=== PATIENT | female | born 1995 | race African-American/Black ===

== ENCOUNTER 2018-07-14 15:33 | Emergency (ER) | payer OTHER | END 2018-07-14 19:37 | disposition home or self-care (01) | LOC: JER 15:33 ==

== ENCOUNTER 2018-07-17 00:45 | Emergency (ER) | payer OTHER ==
[2018-07-17 01:05] VITALS: BP 120/74; PULSE 74; TEMP 97.6; BMI 41.5
[2018-07-17] MEDS ORDERED: ONDANSETRON 4 MG/2 ML VIAL IVPUSH ONE (01:26)
[2018-07-17] MEDS ORDERED: SODIUM CHLORIDE 1,000 ML IV STA (01:26)
[2018-07-17] MEDS ORDERED: ONDANSETRON 4 MG/2 ML VIAL ONE (01:29)
[2018-07-17 02:10] LABS: BASO % 0.9 % (0-2.0); EOS % 0.6 % (0-4.5); HEMATOCRIT 34.7 % (32.4-45.2); HEMOGLOBIN 11.7 GM/dL (10.7-15.3); LYMPH % 17.7 % (8-40); MCH 27.6 pg (25.7-33.7); MCHC 33.7 g/dl (32.0-36.0); MEAN CELL VOLUME 81.9 fl (80-96); MEAN PLT VOLUME 9.4 fl (7.5-11.1); MONO % 4.8 % (3.8-10.2); RBC 4.24 M/mm3 (3.60-5.2); RDW 15.1 % (11.6-15.6); WHITE BLOOD COUNT 11.7 K/mm3 (4.0-10.0)
--- NOTE | 2018-07-17 02:18 | PDOC ---
History of Present Illness - General Chief Complaint: Nausea/Vomiting Stated Complaint: VOMITNG/DIZZY Time Seen by Provider: 07/17/18 01:20 History Source: Patient Exam Limitations: No Limitations - History of Present Illness Initial Comments: 07/17/18 02:24 23 y/o F with no significant PMHx presents feeling dizziness and lightheadedness for the past 1 week, with nausea and NBNB emesis x several days. She was seen 07/14/18 in the ED for similar sx, primarily dizziness/vertigo , nausea; no meds rxd as sx were attributed to recent . Labs at that time were wnl, downtrending preg test and neg UA no prodromal URI sx/ear pain/sore throat or viral syndrome. Patient says these symptoms [facility] , with improved VB and no abdominal sx or pain/bowel movement changes. She notes her dizziness/lightheadedness worse with changing position and head movements., like "room spinning" sensation - no prior similar sx previously. She has been unable to tolerate fluid/food intake, vomiting all day, NBNB. no suspicious food intake or travel. no sick contacts. 07/17/18 02:27 07/17/18 02:54 07/17/18 02:56 Past History - Past Medical History Allergies/Adverse Reactions: Allergies Allergy/AdvReac Type Severity Reaction Status Date / Time No Known Allergies Allergy Verified 07/17/18 01:01 Home Medications: Ambulatory Orders Meclizine HCl [Antivert -] 25 mg PO TID PRN #15 tablet 07/17/18 Nitrofurantoin Monohyd/M-Cryst [Macrobid -] 100 mg PO BID #10 capsule 07/17/18 Ondansetron [Zofran Odt -] 4 mg SL TID PRN #9 od.tablet 07/17/18 Asthma: No Cancer: No Cardiac Disorders: No CVA: No COPD: No CHF: No DVT: No Dementia: No Diabetes: No GI Disorders: No Disorders: Yes (Hx of Chlamydia (Treated)) HTN: No Hypercholesterolemia: No Seizures: No Thyroid Disease: No - Surgical History Abdominal Surgery: No Appendectomy: No Cardiac Surgery: No Cholecystectomy: No Gastric Stapling: No GI Surgery: No Lung Surgery: No Neurologic Surgery: No Orthopedic Surgery: No - Immunization History Immunization Up to Date: Yes - Suicide/Smoking/Psychosocial Hx Smoking History: Never smoked Have you smoked in the past 12 months: No Number of Cigarettes Smoked Daily: 5 Information on smoking cessation initiated: No Hx Alcohol Use: No Drug/Substance Use Hx: No Substance Use Type: None Hx Substance Use Treatment: No Review of Systems - Review of Systems Able to Perform ROS?: Yes Comments:: 07/17/18 02:25 Review of systems Constitutional: no fevers or chills. HEENT: no headache No congestion. No visual/hearing disturbances. +dizziness/ lightheadedness. CVS: no cp or syncope. Resp: no sob. No cough. Gastrointestinal: no abdominal pain or diarrhea, +nausea +vomiting. Genitourinary: no urinary sx, hematuria. no vaginal bleeding. MUSCULOSKELETAL: No joint pain and swelling. No neck or back pain. SKIN: no redness or skin changes, no discharge, no rash. No wounds. Hematologic: no easy bruising/bleeding. Allergic/Immunologic: no allergies All other systems reviewed and negative, or as documented in HPI. *Physical Exam - Vital Signs Last Vital Signs Temp Pulse Resp BP Pulse Ox 97.6 F 74 18 120/74 98 07/17/18 01:01 07/17/18 01:01 07/17/18 01:01 07/17/18 01:01 07/17/18 01:01 - Physical Exam Comments: 07/17/18 02:25 Physical exam: General: awake and alert, NAD. nontoxic. +acutely nauseous HEENT: NCAT, PERRL, EOMI, no nystagmus, clear conjunctiva, anicteric, moist mucus membranes, clear oropharynx, no oral lesions.. Neck: neck supple, FROM Resp: CTAB, normal and even respirations, no respiratory distress CVS: RRR, no murmurs, 2+ peripheral pulses throughout, no peripheral edema Abdomen: soft, NTND, no peritoneal signs. Back: nontender, normal inspection and ROM MSK: no edema, MAO x4, ROM intact. No clubbing or cyanosis. normal bulk and tone. Neuro: alert, no focal neuro deficits. ambulatory, gait stable. no dysmetria. Skin: warm and well perfused, dry, cap refill <2 sec, normal color for ethnicity 07/17/18 02:55 ED Treatment Course - LABORATORY CBC & Chemistry Diagram: 07/17/18 01:26 07/17/18 01:26 - Medications Given in the ED: ED Medications Discontinued Medications Generic Name Dose Route Start Last Admin Trade Name Magdalena PRN Reason Stop Dose Admin Ondansetron HCl 4 mg 07/17/18 01:26 07/17/18 01:54 Zofran Injection IVPUSH 07/17/18 01:27 4 mg ONCE ONE Administration Medical Decision Making - Medical Decision Making 07/17/18 02:53 See HPI for details. Prior notes reviewed, including admissions, discharges and consultations. Vital signs reviewed, wnl. laboratory results and imaging reviewed, basic labs and lytes wnl, notable for normal LFTs/lipase beta hcg downtrending from 400s --> 200s compared to prior ED visit. UA +Leuk esterase and WBCs>10 ED course -interventions: IVF, zofran. reglan additionally, PO meclizine for vertigo sx. appears peripheral, no neuro deficits. clinically does not appear as central vertigo, more peripheral etiology and trial meds, as she was not previously sent home on regimen no gonzalez. no neuro deficits. - also UA with +WBCs>10, with clinical uti sx , n/v. treat with macrobid uncomplicated UTI, f/u cultures as possible etiology of sx. Pt to be discharged in stable condition. Patient and family made aware of clinical impression, treatment recommendations and disposition plan, return precautions discussed (including but not limited to new or persistent/worsening symptoms, pain, fevers, or signs of infection, chest pain, respiratory distress , inability to tolerate oral intake, dehydration, syncope, or neurologic changes ). Follow up with PMD and/or specialist as recommended, follow up information provided, take medications as instructed for duration of time. continue with supportive care, avoid triggers and precipitants. All questions answered to patient's satisfaction and expressed understanding and comfort with this. At the time of discharge, the patient is alert, clinically improved, tolerating po and verbalizes understanding of instructions, satisfied with the care received and felt comfortable with the plan. Patient does not suffer from an acute life- threatening medical condition at this time and is safe for outpatient follow- up. 07/17/18 02:55 07/17/18 04:18 07/17/18 05:40 *DC/Admit/Observation/Transfer Diagnosis at time of Disposition: Vertigo, Nausea & vomiting, UTI (urinary tract infection) - Discharge Dispostion Disposition: HOME Condition at time of disposition: Improved Decision to Admit order: No - Prescriptions Prescriptions: Meclizine HCl [Antivert -] 25 mg PO TID PRN #15 tablet PRN Reason: dizziness Nitrofurantoin Monohyd/M-Cryst [Macrobid -] 100 mg PO BID #10 capsule Ondansetron [Zofran Odt -] 4 mg SL TID PRN #9 od.tablet PRN Reason: nausea, vomiting - Referrals Referrals: Katherine Arguelles MD [Primary Care Provider] - Todd Westbrook MD [Staff Physician] - - Patient Instructions Printed Discharge Instructions: DI for Vertigo, DI for Vomiting -- Adult, DI for Urinary Tract Infection (UTI) Additional Instructions: 1) Please follow-up with your primary care doctor in the next 1-2 days. Please call tomorrow for for any urgent issues. Neurology followup provided for the vertigo in case it recurs or worsens 2) You were given a copy of the tests performed today. Please bring the results with you and review them with your primary care doctor. Your laboratory / were normal with downtrending beta hcg. 3) If you have any worsening of symptoms or any other concerns please return to the ED immediately. Return if worsening symptoms including fevers, headache, vomiting, visual or hearing disturbances, abdominal pain, chest pain, shortness of breath, syncope, dehydration, inability to take things by mouth/vomiting, altered mental status, or worsening concerning symptoms. 4) Please continue taking your home medications as directed. your medications on discharge include Zofran every 8 hours as needed for nausea/vomiting and meclizine three times a day as needed for dizziness/vertigo. side effects may include upset stomach, abdominal pain, vomiting, or diarrhea. do not drink alcohol with your medications. you may also have a urinary tract infection, take macrobid twice a day x 5 days for this, follow up on the urine culture Stay well hydrated and rest adequately. Make an appointment. If you cannot follow-up with your primary care doctor please return to the ED - Post Discharge Activity
[2018-07-17 02:50] LABS: ALBUMIN 3.9 g/dl (3.4-5.0); BILIRUBIN,TOTAL 0.5 mg/dL (0.2-1); BLOOD UREA NITROGEN 9.7 mg/dL (7-18); CREATININE 0.8 mg/dL (0.55-1.3); POTASSIUM 3.9 mmol/L (3.5-5.1); TOT PROT 7.9 g/dl (6.4-8.2)
[2018-07-17] MEDS ORDERED: MECLIZINE HCL 25 MG TABLET (FP) PO ONE (02:51)
[2018-07-17] MEDS ORDERED: METOCLOPRAMIDE HCL INJECTION 10 MG/2 ML VIAL IVPUSH ONE (02:51)
[2018-07-17] MEDS ORDERED: METOCLOPRAMIDE HCL INJECTION 10 MG/2 ML VIAL ONE (02:51)
[2018-07-17 03:17] LABS: PLATELET COUNT 248 K/MM3 (134-434); PLATELET ESTIMATE ADEQUATE
[2018-07-17] MEDS ORDERED: MECLIZINE HCL 25 MG TABLET (FP) ONE (03:59)
[2018-07-17 05:11] LABS: HCG,QUALITATIVE URINE Positive
[2018-07-17 05:13] LABS: EPI CELLS 12.4 /HPF (0-5/HPF); HYALINE CASTS 15 /lpf (0-8); PH,URINE 6.5 (5.0-8.0); URINE APPEARANCE CLEAR; URINE BACTERIA 364.8 /hpf (NEGATIVE); URINE BILIRUBIN NEGATIVE (NEGATIVE); URINE COLOR YELLOW; URINE GLUCOSE (UA) NEGATIVE (NEGATIVE); URINE KETONE TRACE (NEGATIVE); URINE LEUK ESTERASE 1+ (NEGATIVE); URINE NITRITE NEGATIVE (NEGATIVE); URINE PROTEIN NEGATIVE (NEGATIVE); URINE RBC 7 /hpf (0-4); URINE WBC 14 /hpf (0-5)
== END 2018-07-17 05:46 | disposition home or self-care (01) ==
LOC: JER 00:45
PROC: 3E033GC Introduction of Other Therapeutic Substance into Peripheral Vein, Percutaneous Approach (ICD-10-PCS; principal; 2018-07-17)
PROC: 3E033GC Introduction of Other Therapeutic Substance into Peripheral Vein, Percutaneous Approach (ICD-10-PCS; 2018-07-17)
DX: N39.0 Urinary tract infection, site not specified (principal)
CPT/HCPCS: 36415; 80053; 81003; 83690; 84702; 84703; 85025; 87086; 96374; 96375; 99283-25; J7030

== ENCOUNTER 2018-07-19 14:19 | Emergency (ER) | payer OTHER ==
[2018-07-19 14:44] VITALS: BMI 41.5
[2018-07-19] MEDS ORDERED: METOCLOPRAMIDE HCL INJECTION 10 MG/2 ML VIAL IVPUSH ONE (17:21)
[2018-07-19] MEDS ORDERED: SODIUM CHLORIDE 1,000 ML IV STA (17:32)
[2018-07-19] MEDS ORDERED: FAMOTIDINE 20 MG/50 ML IVPB 20 MG/50 ML MG IVPB ONE ×2 (17:32→18:04)
--- NOTE | 2018-07-19 17:40 | PDOC ---
History of Present Illness - General Chief Complaint: Nausea/Vomiting Stated Complaint: VOMITTING Time Seen by Provider: 07/19/18 17:13 History Source: Patient Exam Limitations: Clinical Condition - History of Present Illness Initial Comments: 07/19/18 19:07 Patient with no significant past medical history present with complaint of persistent vomiting, dizziness and weakness status post medical over week ago. Patient was seen 5 days ago for symptoms and discharged home on Zofran for nausea and vomiting but patient came back 2 days after for persistent symptoms or discharge home on meclizine for vertigo. Patient reported dizziness improved with meclizine but comes back again after a few hours. Patient did not take Zofran for the vomiting. Patient reported unable to keep any food down. Denies diarrhea. Constipation. Denies vaginal bleeding now Timing/Duration: 1 week Past History - Past Medical History Allergies/Adverse Reactions: Allergies Allergy/AdvReac Type Severity Reaction Status Date / Time No Known Allergies Allergy Verified 07/17/18 01:01 Home Medications: Ambulatory Orders Meclizine HCl [Antivert -] 25 mg PO TID PRN #15 tablet 07/17/18 Nitrofurantoin Monohyd/M-Cryst [Macrobid -] 100 mg PO BID #10 capsule 07/17/18 Ondansetron [Zofran Odt -] 4 mg SL TID PRN #9 od.tablet 07/17/18 Asthma: No Cancer: No Cardiac Disorders: No CVA: No COPD: No CHF: No DVT: No Dementia: No Diabetes: No GI Disorders: No Disorders: Yes (Hx of Chlamydia (Treated)) HTN: No Hypercholesterolemia: No Seizures: No Thyroid Disease: No - Surgical History Abdominal Surgery: No Appendectomy: No Cardiac Surgery: No Cholecystectomy: No Gastric Stapling: No GI Surgery: No Lung Surgery: No Neurologic Surgery: No Orthopedic Surgery: No - Immunization History Immunization Up to Date: Yes - Suicide/Smoking/Psychosocial Hx Smoking History: Never smoked Have you smoked in the past 12 months: No Number of Cigarettes Smoked Daily: 5 Information on smoking cessation initiated: No Hx Alcohol Use: No Drug/Substance Use Hx: No Substance Use Type: None Hx Substance Use Treatment: No Review of Systems - Review of Systems Able to Perform ROS?: Yes Is the patient limited Tajik proficient: No Constitutional: Yes: Weakness. No: Chills, Fever HEENTM: No: Eye Pain, Blurred Vision, Tearing, Recent change in vision Respiratory: No: Symptoms reported, See HPI, Cough, Orthopnea, Shortness of Breath, SOB with Exertion, SOB at Rest, Stridor, Wheezing, Productive cough, Hemoptysis, Other Cardiac (ROS): No: Symptoms Reported, See HPI, Chest Pain, Edema, Irregular Heart Rate, Lightheadedness, Palpitations, Syncope, Chest Tightness, Other ABD/GI: Yes: Symptoms Reported, See HPI, Nausea, Vomiting. No: Constipated, Diarrhea : Yes: Frequency. No: Burning, Urgency Neurological: Yes: Symptoms reported, See HPI, Weakness, Dizziness All Other Systems: Reviewed and Negative *Physical Exam - Vital Signs Last Vital Signs Temp Pulse Resp BP Pulse Ox 98.1 F 63 16 115/65 100 07/19/18 14:42 07/19/18 14:42 07/19/18 14:42 07/19/18 14:42 07/19/18 14:42 - Physical Exam General Appearance: Yes: Nourished, Appropriately Dressed, Mild Distress HEENT: positive: Normal ENT Inspection Neck: positive: Supple Respiratory/Chest: positive: Lungs Clear, Normal Breath Sounds. negative: Respiratory Distress, Accessory Muscle Use Cardiovascular: positive: Regular Rhythm, Regular Rate Female Pelvic Exam: positive: normal external exam Gastrointestinal/Abdominal: positive: Normal Bowel Sounds, Soft. negative: Tender, Organomegaly Musculoskeletal: positive: Normal Inspection Extremity: positive: Normal Inspection Integumentary: positive: Normal Color Neurologic: positive: Fully Oriented, Alert, Normal Response ED Treatment Course - LABORATORY CBC & Chemistry Diagram: 07/19/18 17:54 07/19/18 17:54 - RADIOLOGY Radiology Studies Ordered: Category Date Time Status TRANSVAGINAL US PREG [US] Stat Ultrasound 07/19/18 17:33 Ordered Medical Decision Making - Medical Decision Making 07/19/18 18:09 Patient with no significant past medical history present with complaint of persistent vomiting, dizziness and weakness status post medical over week ago. Patient was seen 5 days ago for symptoms and discharged home on Zofran for nausea and vomiting but patient came back 2 days after for persistent symptoms or discharge home on meclizine for vertigo. Patient reported dizziness improved with meclizine but comes back again after a few hours. Patient did not take Zofran for the vomiting. Patient reported unable to keep any food down. Denies diarrhea. Constipation. Denies vaginal bleeding now Exam unremarkable with normal abdominal exam. Beta hCG trending down from previous visits after medical @6wks [place].Symptoms likely vertigo versus nausea vomiting from termination. CBC, CMP beta hCG lab ordered. IV hydration with normal saline 1 L ordered. Pepcid 20 mg IV and Reglan 10 mg IV ordered for nausea vomiting and vertigo.Transvaginal ultrasound ordered to evaluate for retained POC. Reevaluate after lab and imaging results 07/19/18 19:12 CBC and chemistry lab are unremarkable. Patient pending ultrasound. Patient sign out to evening team for follow-up care. *DC/Admit/Observation/Transfer Diagnosis at time of Disposition: Lightheadedness, Vertigo Nausea & vomiting Qualifiers: Vomiting type: unspecified Vomiting Intractability: non-intractable Qualified Code(s): R11.2 - Nausea with vomiting, unspecified - Discharge Dispostion Condition at time of disposition: Stable - Referrals - Patient Instructions - Post Discharge Activity
[2018-07-19] MEDS ORDERED: METOCLOPRAMIDE HCL INJECTION 10 MG/2 ML VIAL ONE (18:04)
[2018-07-19 18:06] LABS: BASO % 0.6 % (0-2.0); EOS % 0.2 % (0-4.5); HEMATOCRIT 34.9 % (32.4-45.2); HEMOGLOBIN 11.8 GM/dL (10.7-15.3); LYMPH % 15.7 % (8-40); MCH 27.7 pg (25.7-33.7); MCHC 33.9 g/dl (32.0-36.0); MEAN CELL VOLUME 81.6 fl (80-96); MEAN PLT VOLUME 8.9 fl (7.5-11.1); MONO % 5.2 % (3.8-10.2); NEUT % 78.3 % (42.8-82.8); PLATELET COUNT 227 K/MM3 (134-434); RBC 4.28 M/mm3 (3.60-5.2); RDW 14.9 % (11.6-15.6); WHITE BLOOD COUNT 7.6 K/mm3 (4.0-10.0)
[2018-07-19 18:38] LABS: BILIRUBIN,TOTAL 0.6 mg/dL (0.2-1); BLOOD UREA NITROGEN 8.8 mg/dL (7-18); CALCIUM 9.1 mg/dL (8.5-10.1); CREATININE 0.7 mg/dL (0.55-1.3); TOT PROT 7.9 g/dl (6.4-8.2)
--- NOTE | 2018-07-19 21:43 | PDOC ---
*Physical Exam - Vital Signs Last Vital Signs Temp Pulse Resp BP Pulse Ox 98.1 F 63 16 115/65 100 07/19/18 14:42 07/19/18 14:42 07/19/18 14:42 07/19/18 14:42 07/19/18 14:42 - Physical Exam General Appearance: Yes: Nourished, Appropriately Dressed. No: Apparent Distress Gastrointestinal/Abdominal: positive: Normal Bowel Sounds, Flat, Soft. negative : Tender, Guarding, Rebound, Tenderness Integumentary: positive: Normal Color, Dry, Warm Neurologic: positive: Fully Oriented, Alert, Normal Mood/Affect, Normal Response ED Treatment Course - LABORATORY CBC & Chemistry Diagram: 07/19/18 17:54 07/19/18 17:54 - ADDITIONAL ORDERS Additional order review: Laboratory Results 07/19/18 17:54 Sodium 141 Potassium 4.0 Chloride 110 H Carbon Dioxide 25 Anion Gap 7 L BUN 8.8 Creatinine 0.7 Est GFR (CKD-EPI)AfAm 139.57 Est GFR (CKD-EPI)NonAf 120.42 Random Glucose 101 Calcium 9.1 Total Bilirubin 0.6 AST 13 L ALT 23 Alkaline Phosphatase 70 Total Protein 7.9 Albumin 4.0 07/19/18 17:54 RBC 4.28 MCV 81.6 MCHC 33.9 RDW 14.9 MPV 8.9 Neutrophils % 78.3 Lymphocytes % 15.7 Monocytes % 5.2 Eosinophils % 0.2 Basophils % 0.6 - Medications Given in the ED: ED Medications Discontinued Medications Generic Name Dose Route Start Last Admin Trade Name Freq PRN Reason Stop Dose Admin Famotidine/Sodium Chloride 20 mg in 50 mls @ 100 mls/hr 07/19/18 17:32 18:10 Pepcid 20 Mg Premixed Ivpb - IVPB 07/19/18 18:01 100 mls/hr ONCE ONE Administration Sodium Chloride 1,000 mls @ 1,000 mls/hr 07/19/18 17:32 07/19/18 18:10 Normal Saline - IV 07/19/18 18:31 1,000 mls/hr ASDIR STA Administration Metoclopramide HCl 10 mg 07/19/18 17:21 07/19/18 18:50 Reglan Injection - IVPUSH 07/19/18 17:22 10 mg ONCE ONE Administration Medical Decision Making - Medical Decision Making 07/19/18 11:27 Sign out received from MADY Shepherd at 19:00 Pt with nausea, vomiting and dizziness after elective ab TVUS shows no evidence of retained products Dizziness/nausea relieved with reglan DC home with PO reglan and pcp follow up I discussed the physical exam findings, ancillary test results and final diagnoses with the patient. I answered all of the patient's questions. The patient was satisfied with the care received and felt comfortable with the discharge plan and treatment plan. The Patient agrees to follow up with the primary care physician/specialist within 24-72 hours. Return precautions were given. *DC/Admit/Observation/Transfer Diagnosis at time of Disposition: Lightheadedness, Vertigo Nausea & vomiting Qualifiers: Vomiting type: unspecified Vomiting Intractability: non-intractable Qualified Code(s): R11.2 - Nausea with vomiting, unspecified - Discharge Dispostion Disposition: HOME Condition at time of disposition: Stable Decision to Admit order: No - Prescriptions Prescriptions: Metoclopramide HCl [Reglan -] 10 mg PO TID #21 tablet - Referrals Referrals: Abraham Toledo MD [Staff Physician] - - Patient Instructions Printed Discharge Instructions: DI for Nausea -- Adult Additional Instructions: You were evaluated for your nausea and vomiting today. Your lab work was normal. Your ultrasound was normal and did not show any retained products. We're going to switch her medication for the nausea and dizziness to Reglan. Please take it as prescribed. Stop taking the meclizine Follow-up with her primary care doctor this week. Return to the ER for any new or worsening symptoms. - Post Discharge Activity Forms/Work/School Notes: Back to Work
[2018-07-19 21:55] VITALS: BP 120/60; PULSE 80; TEMP 98.3
== END 2018-07-19 21:55 | disposition home or self-care (01) ==
LOC: JER 14:19
PROC: 3E033GC Introduction of Other Therapeutic Substance into Peripheral Vein, Percutaneous Approach (ICD-10-PCS; principal; 2018-07-19)
PROC: 3E033GC Introduction of Other Therapeutic Substance into Peripheral Vein, Percutaneous Approach (ICD-10-PCS; 2018-07-19)
DX: R42 Dizziness and giddiness (principal); R11.2 Nausea with vomiting, unspecified; R53.1 Weakness; Z98.890 Other specified postprocedural states
CPT/HCPCS: 36415; 76817-TC; 80053; 85025; 96365; 96375; 99283-25; J7030

== ENCOUNTER 2018-08-12 13:39 | Emergency (ER) | payer OTHER ==
[2018-08-12 13:51] VITALS: BP 120/65; PULSE 81; TEMP 98.7; BMI 40.4
--- NOTE | 2018-08-12 13:52 | PDOC ---
Rapid Medical Evaluation Time Seen by Provider: 08/12/18 13:50 Medical Evaluation: Allergies Allergy/AdvReac Type Severity Reaction Status Date / Time No Known Allergies Allergy Verified 08/12/18 13:47 08/12/18 13:50 The patient presents for 2 days of L ear pain. Has not taken any medication for pain Exam: AAOx3, ambulatory. Ear exam deferred to provider Orders: Nothing Pt to proceed to the ER for further evaluation Discharge Disposition - Diagnosis Otalgia of left ear - Referrals - Patient Instructions - Post Discharge Activity
--- NOTE | 2018-08-12 14:28 | PDOC ---
History of Present Illness - General Chief Complaint: Ear Problem Stated Complaint: LT EAR INFECTION Time Seen by Provider: 08/12/18 13:50 - History of Present Illness Initial Comments: 08/12/18 14:26 23-year-old female without comorbidities presents for evaluation of dizziness and left ear pain over the last few months. She was treated in the past for but has never followed up. She has no systemic symptoms. Past History - Past Medical History Allergies/Adverse Reactions: Allergies Allergy/AdvReac Type Severity Reaction Status Date / Time No Known Allergies Allergy Verified 08/12/18 13:47 Home Medications: Ambulatory Orders Meclizine HCl [Antivert -] 25 mg PO TID PRN #15 tablet 07/17/18 Nitrofurantoin Monohyd/M-Cryst [Macrobid -] 100 mg PO BID #10 capsule 07/17/18 Ondansetron [Zofran Odt -] 4 mg SL TID PRN #9 od.tablet 07/17/18 Metoclopramide HCl [Reglan -] 10 mg PO TID #21 tablet 07/19/18 Meclizine HCl [Antivert -] 25 mg PO TID PRN #21 tablet 08/12/18 Asthma: No Cancer: No Cardiac Disorders: No CVA: No COPD: No CHF: No DVT: No Dementia: No Diabetes: No GI Disorders: No Disorders: Yes (Hx of Chlamydia (Treated)) HTN: No Hypercholesterolemia: No Seizures: No Thyroid Disease: No - Surgical History Abdominal Surgery: No Appendectomy: No Cardiac Surgery: No Cholecystectomy: No Gastric Stapling: No GI Surgery: No Lung Surgery: No Neurologic Surgery: No Orthopedic Surgery: No - Immunization History Immunization Up to Date: Yes - Suicide/Smoking/Psychosocial Hx Smoking History: Never smoked Have you smoked in the past 12 months: No Number of Cigarettes Smoked Daily: 5 Hx Alcohol Use: No Drug/Substance Use Hx: No Substance Use Type: None Hx Substance Use Treatment: No Review of Systems - Review of Systems Constitutional: No: Fever HEENTM: Yes: Ear Pain Neurological: Yes: Dizziness *Physical Exam - Vital Signs Last Vital Signs Temp Pulse Resp BP Pulse Ox 98.7 F 81 18 120/65 97 08/12/18 13:48 08/12/18 13:48 08/12/18 13:48 08/12/18 13:48 08/12/18 13:48 - Physical Exam Comments: 08/12/18 14:27 HEAD: NC/AT EYES: Conjuntiva clear Ears: Canals and TM's normal NOSE: No d/c THROAT: Moist mucous membrances, oral pharanx clear, uvula midline NECK: Supple without adenopathy CARDIAC: S1 S2 LUNGS: CTA Full and Equal breath sounds ABDOMEN: Soft NT ND MS: Full ROM in all joints without edema NEUROLOGIC: No gross sensory or motor deficits, NVID SKIN: Normal color and temperature no lesions or rashes Medical Decision Making - Medical Decision Making 08/12/18 14:27 Patient states the pain in her left ear has resolved and she is not dizzy during her ER examination. She does have a history of what sounds like vertigo or BPV possibly labyrinthitis. I will have her follow-up with ear nose and throat doctor *DC/Admit/Observation/Transfer Diagnosis at time of Disposition: Otalgia of left ear - Discharge Dispostion Disposition: HOME Condition at time of disposition: Stable Decision to Admit order: No - Prescriptions Prescriptions: Meclizine HCl [Antivert -] 25 mg PO TID PRN #21 tablet PRN Reason: dizziness - Referrals Referrals: Xavi Aguilar MD [Staff Physician] - - Patient Instructions Printed Discharge Instructions: Benign Paroxysmal Positional Vertigo Additional Instructions: Please take the medication as needed for dizziness. Return to the emergency room for worsening symptoms. Follow-up with ear nose and throat doctor in 1-2 days without fail. - Post Discharge Activity
== END 2018-08-12 14:32 | disposition home or self-care (01) ==
LOC: JERFT 13:39
DX: H92.02 Otalgia, left ear (principal)
CPT/HCPCS: 99281-25

== ENCOUNTER 2020-07-13 02:48 | Emergency (ER) | payer OTHER ==
[2020-07-13] MEDS ORDERED: ACETAMINOPHEN 325 MG TABLET (FP) PO ONE (03:58)
[2020-07-13] MEDS ORDERED: ACETAMINOPHEN 325 MG TABLET (FP) ONE (04:08)
[2020-07-13 04:25] LABS: BASO % 0.9 % (0-2.0); EOS % 0.8 % (0-4.5); HEMATOCRIT 35.7 % (32.4-45.2); HEMOGLOBIN 12.3 GM/dL (10.7-15.3); LYMPH % 15.5 % (8-40); MCH 28.3 pg (25.7-33.7); MCHC 34.6 g/dl (32.0-36.0); MEAN CELL VOLUME 81.9 fl (80-96); MEAN PLT VOLUME 9.7 fl (7.5-11.1); MONO % 9.1 % (3.8-10.2); NEUT % 73.7 % (42.8-82.8); PLATELET COUNT 192 K/MM3 (134-434); RBC 4.36 M/mm3 (3.60-5.2); RDW 14.3 % (11.6-15.6); WHITE BLOOD COUNT 9.6 K/mm3 (4.0-10.0)
[2020-07-13 04:36] VITALS: BMI 26.0
[2020-07-13 04:37] LABS: CHLORIDE 109 mmol/L (98-107); SODIUM 138 mmol/L (136-145)
[2020-07-13 04:39] LABS: CALCIUM 8.8 mg/dL (8.5-10.1); LIPASE 74 U/L (73-393)
[2020-07-13 04:40] LABS: ALBUMIN 3.7 g/dl (3.4-5.0); ANION GAP 6 MMOL/L (8-16); BLOOD UREA NITROGEN 9.4 mg/dL (7-18); CO2 24 mmol/L (21-32); GLUCOSE,RANDOM 86 mg/dL (74-106)
[2020-07-13 04:42] LABS: SGPT/ALT 19 U/L (13-61)
[2020-07-13 04:43] LABS: CREATININE 0.7 mg/dL (0.55-1.3); SGOT/AST 21 U/L (15-37)
[2020-07-13 04:44] LABS: BILIRUBIN,TOTAL 0.9 mg/dL (0.2-1)
[2020-07-13 04:45] LABS: ALK PHOS 69 U/L (45-117)
[2020-07-13] MEDS ORDERED: IBUPROFEN 600 MG TABLET (FP) PO ONE ×2 (05:03→05:26)
[2020-07-13 09:32] LABS: URINE APPEARANCE CLEAR; URINE BILIRUBIN NEGATIVE (NEGATIVE); URINE COLOR YELLOW; URINE GLUCOSE (UA) NEGATIVE (NEGATIVE); URINE KETONE NEGATIVE (NEGATIVE); URINE LEUK ESTERASE NEGATIVE (NEGATIVE); URINE NITRITE NEGATIVE (NEGATIVE); URINE PROTEIN NEGATIVE (NEGATIVE)
[2020-07-13 09:33] LABS: URINE BACTERIA 2313.2 /uL (0-1359); URINE RBC 44.8 /uL (0-23.9); URINE WBC 154.4 /uL (0-25.8)
[2020-07-13] MEDS ORDERED: KETOROLAC TROMETHAMINE 30 MG/1 ML VIAL IVPUSH ONE (10:46)
[2020-07-13] MEDS ORDERED: KETOROLAC TROMETHAMINE 30 MG/1 ML VIAL ONE (10:55)
[2020-07-13 13:02] VITALS: BP 103/69; PULSE 60; TEMP 98
== END 2020-07-13 12:39 | disposition home or self-care (01) ==
LOC: JER 02:48
PROC: 3E0333Z Introduction of Anti-inflammatory into Peripheral Vein, Percutaneous Approach (ICD-10-PCS; principal; 2020-07-13)
DX: N83.292 Other ovarian cyst, left side (principal)
CPT/HCPCS: 36415; 74177-TC; 76830-TC; 80053; 81003; 83690; 84702; 84703; 85025; 87086; 99285-25; Q9967

== ENCOUNTER 2021-02-04 15:47 | Emergency (ER) | payer OTHER ==
[2021-02-04 16:17] VITALS: BP 116/69; PULSE 96; TEMP 98.5; BMI 28.3
[2021-02-04] MEDS ORDERED: IBUPROFEN 600 MG TABLET (FP) PO ONE ×2 (17:37→17:45)
[2021-02-06 12:07] LABS: SARS-CoV-2 NAA Detected (Not Detected)
== END 2021-02-04 17:56 | disposition home or self-care (01) ==
LOC: JER 15:47
DX: U07.1 COVID-19 (principal); R05.1 Acute cough; R51.9 Headache, unspecified
CPT/HCPCS: 87804; 99283-25; C9803; U0003; U0005

== ENCOUNTER 2022-11-29 00:56 | Emergency (ER) | payer OTHER ==
[2022-11-29 01:05] VITALS: BP 125/84; PULSE 88; RESP 18; TEMP 98; BMI 86.0
== END 2022-11-29 03:15 | disposition home or self-care (01) ==
LOC: JER 00:56
PROC: 2W3CX1Z Immobilization of Right Lower Arm using Splint (ICD-10-PCS; principal; 2022-11-29)
DX: M79.641 Pain in right hand (principal)
CPT/HCPCS: 73130-TC-RT-FY; 99283-25

== ENCOUNTER 2023-07-18 02:51 | Emergency (ER) | payer OTHER ==
[2023-07-18 02:58] VITALS: BP 108/75; PULSE 76; RESP 20; TEMP 98.4; BMI 39.1
== END 2023-07-18 03:35 | disposition home or self-care (01) ==
LOC: JER 02:51
DX: T19.2XXA Foreign body in vulva and vagina, initial encounter (principal)
CPT/HCPCS: 99283-25

== ENCOUNTER 2023-09-24 18:43 | Emergency (ER) | payer OTHER ==
[2023-09-24 19:00] VITALS: BP 104/72; PULSE 91; RESP 19; TEMP 98.8; BMI 33.2
[2023-09-24] MEDS ORDERED: ACETAMINOPHEN 500 MG TABLET (FP) ONE (19:38)
[2023-09-24] MEDS: ACETAMINOPHEN 500 MG TABLET (FP) PO ONE (19:39)
== END 2023-09-24 20:44 | disposition home or self-care (01) ==
LOC: JER 18:43
DX: N64.4 Mastodynia (principal); Z20.822 Contact with and (suspected) exposure to COVID-19
CPT/HCPCS: 0241U-QW; 71046-TC-FY; 84703; 93005; 93010; 99285-25

== ENCOUNTER 2023-12-19 04:26 | Emergency (ER) | payer SELFPAY ==
[2023-12-19 04:34] VITALS: TEMP 98.8; BMI 37.4
[2023-12-19 06:05] LABS: BASO % 0.8 % (0-2.0); EOS % 2.5 % (0-4.5); HEMATOCRIT 35.1 % (32.4-45.2); LYMPH % 24.6 % (8-40); MCH 27.9 pg (25.7-33.7); MCHC 34.2 g/dl (32.0-36.0); MEAN CELL VOLUME 81.6 fl (80-96); MEAN PLT VOLUME 8.7 fl (7.5-11.1); MONO % 7.3 % (3.8-10.2); NEUT % 64.8 % (42.8-82.8); PLATELET COUNT 217 10^3/uL (134-434); RDW 15.5 % (11.6-15.6); WHITE BLOOD COUNT 11.1 K/mm3 (4.0-10.0)
[2023-12-19] MEDS ORDERED: MORPHINE SULFATE 2 MG/ML SYRINGE ONE ×2 (06:06→06:28)
[2023-12-19] MEDS: morphine CARPU-JECT 2 MG/1 ML DISP.SYRIN IVPUSH ONE ×2 (06:21→06:36)
[2023-12-19] MEDS ORDERED: LIDOCAINE 1%/EPI 1:100000 (20 ML MULTI DOSE VIAL) ONE (06:21)
[2023-12-19] MEDS: SODIUM CHLORIDE 0.9% 500 ML INFUS.BAG IV ONE (06:21)
[2023-12-19] MEDS: DALBAVANCIN HCL 1,500 MG in DEXTROSE 5%-WATER - 500 ML IVPB ONE (06:35)
[2023-12-19] MEDS: LIDOCAINE 1%/EPI 1:100000 (50 ML MULTI DOSE VIAL) PNB ONE (06:35)
[2023-12-19 06:36] VITALS: BP 128/78; PULSE 95; RESP 16
[2023-12-19 06:47] LABS: POTASSIUM 5.7 mmol/L (3.5-5.1)
[2023-12-19 06:49] LABS: CALCIUM 9.3 mg/dL (8.5-10.1)
[2023-12-19 06:50] LABS: ALBUMIN 3.6 g/dl (3.4-5.0); BLOOD UREA NITROGEN 10.9 mg/dL (7-18)
[2023-12-19 06:53] LABS: CREATININE 0.8 mg/dL (0.55-1.3)
[2023-12-19 06:54] LABS: BILIRUBIN,TOTAL 0.5 mg/dL (0.2-1); TOT PROT 8.1 g/dl (6.4-8.2)
[2023-12-19] MEDS: LIDOCAINE 2%/EPINEPHRINE 1:100000 (50 ML MD VIAL) INF ONE (07:07)
== END 2023-12-19 08:45 | disposition home or self-care (01) ==
LOC: JER 04:26
PROC: 0H9CXZZ Drainage of Left Upper Arm Skin, External Approach (ICD-10-PCS; principal; 2023-12-19)
PROC: 3E03329 Introduction of Other Anti-infective into Peripheral Vein, Percutaneous Approach (ICD-10-PCS; 2023-12-19)
PROC: 3E033NZ Introduction of Analgesics, Hypnotics, Sedatives into Peripheral Vein, Percutaneous Approach (ICD-10-PCS; 2023-12-19)
DX: L73.2 Hidradenitis suppurativa (principal); L02.412 Cutaneous abscess of left axilla
CPT/HCPCS: 80053; 85025; 87070; 87077; 87205; 99284-25; J0875